=== PATIENT | female | born 1990 | race African-American/Black ===

== ENCOUNTER 2025-02-10 11:36 | Emergency (ER) | payer OTHER, SELFPAY ==
[2025-02-10 11:38] VITALS: BP 161/107
[2025-02-10 12:47] VITALS: BP 117/79
--- NOTE | 2025-02-10 12:47 | ED.GENMED ---
History of Present Illness
<Alivia Lucas PA-C - Last Filed: 02/10/25 17:39>
General
Chief Complaint: Anxiety
Source: patient
Exam Limitations: none
Time Seen by Provider: 02/10/25 12:29
History of Present Illness
History of Present Illness:
35yoF with a history of anxiety, PTSD, migraines, and asthma presenting for evaluation of anxiety. Patient's brother in November and she is still going through the grieving process. She was speaking with her PCP on the phone today
regarding the situation and her anxiety started to worsen. She feels like she is having a panic attack. She reports heart racing, chest tightness, shortness of breath, and a headache. She also cannot sit still due to her symptoms. Headache feels
similar to her prior migraines. She takes trazodone, Xanax PRN, and another medication that she does not recall the name of. The dose her medications were increased by her PCP 2 months ago. She is scheduled to see a therapist for the first time
in 2 days. No suicidal ideations.
Phy Exam
<Alivia Lucas PA-C - Last Filed: 02/10/25 17:39>
Physical Exam
Physical Exam:
Patient visibly anxious
General Physical Exam
General Presentation: no apparent distress
General Skin: warm and dry
General Habitus: normal
General Mental: alert
ENT Exam
ENT Exam: normocephalic
Cardiovascular Exam
Cardiovascular Exam: no edema and tachycardia
Pulmonary Exam
Pulmonary Exam: lungs clear, no respiratory distress, no rales, no crackles, no rhonchi and no wheezing
Neurological Exam
Neurological Exam: alert
[place] Coma Scale
Eye Opening: Spontaneous
Verbal Response: Oriented
Motor Response: Obeys Commands
GCS Total Score: 15
Skin Exam
Skin Exam: normal color and warm/dry
Psychiatric Exam
Psychiatric Exam: anxious and other (Anxious. No SI. Cooperative during assessment. No signs of psychosis. )
<Aniceto Harrell Jr., PA-C - Last Filed: 02/10/25 16:02>
[place] Coma Scale
GCS Total Score: 15
Course
<Alivia Lucas PA-C - Last Filed: 02/10/25 17:39>
Orders/Labs/Results
Orders:
Orders
02/10/25 11:43
EKG [Electrocardiogram (*1)] Urgent
Reason for Study: Tachycardia
02/10/25 11:44
EKG- Treatment ONCE
02/10/25 13:00
Crisis Consult Urgent
Reason for Consult: anxiety
0.9% Sodium Chloride 1000 ml [Nss] 1,000 ml IV BOLUS
Ketorolac [Toradol] 15 mg IV NOW STA
diazePAM [Valium Injection] 2 mg IV NOW STA
Test Result ONCE
02/10/25 13:50
Complete Blood Count/With Diff Urgent
Comprehensive Metabolic Panel Urgent
D-Dimer Urgent
HCG, Serum Qualitative Screen Urgent
TSH Reflex To Free T4 Urgent
Troponin I Urgent
02/10/25 14:06
Diphenhydramine [Benadryl] 25 mg IV NOW STA
Metoclopramide [Reglan] 10 mg IV NOW STA
02/10/25 14:07
Add On- LAB Urgent
Tests Added?: troponin
02/10/25 14:27
CT Chest PE Study Urgent
Comment:
Reason For Exam: SOB, elevated D-dimer
Abnormal Lab Results
02/10/25
13:50
WBC 2.9 L 10^3/uL
(4.8-10.8)
Absolute Lymphs (auto) 1.1 L 10^3/uL
(1.2-3.4)
Monocytes % 12.0 H %
(1.7-9.3)
D-Dimer 2.38 H ug/mlFEU
(0.00-0.50)
Sodium 134 L mmol/L
(135-145)
BUN 4 L mg/dl
(7-17)
Glucose 109 H mg/dl
(70-99)
AST 45 H U/L
(14-36)
Total Protein 8.4 H g/dl
(6.3-8.2)
02/10/25 13:50
02/10/25 13:50
Vital Signs
Initial and Last Documented VS:
Initial Vital Signs
Temp Pulse Resp BP Pulse Ox
98.9 F 115 18 161/107 98
02/10/25 11:38 02/10/25 11:38 02/10/25 11:38 02/10/25 11:38 02/10/25 11:38
Last Documented Vital Signs
Temp Pulse Resp BP Pulse Ox
98.9 F 88 16 104/76 100
02/10/25 11:38 02/10/25 16:02 02/10/25 16:02 02/10/25 16:02 02/10/25 16:02
<Aniceto Harrell Jr., DIAMOND - Last Filed: 02/10/25 16:02>
Orders/Labs/Results
Orders:
Orders
02/10/25 11:43
EKG [Electrocardiogram (*1)] Urgent
Reason for Study: Tachycardia
02/10/25 11:44
EKG- Treatment ONCE
02/10/25 13:00
Crisis Consult Urgent
Reason for Consult: anxiety
0.9% Sodium Chloride 1000 ml [Nss] 1,000 ml IV BOLUS
Ketorolac [Toradol] 15 mg IV NOW STA
diazePAM [Valium Injection] 2 mg IV NOW STA
Test Result ONCE
02/10/25 13:50
Complete Blood Count/With Diff Urgent
Comprehensive Metabolic Panel Urgent
D-Dimer Urgent
HCG, Serum Qualitative Screen Urgent
TSH Reflex To Free T4 Urgent
Troponin I Urgent
02/10/25 14:06
Diphenhydramine [Benadryl] 25 mg IV NOW STA
Metoclopramide [Reglan] 10 mg IV NOW STA
02/10/25 14:07
Add On- LAB Urgent
Tests Added?: troponin
02/10/25 14:27
CT Chest PE Study Urgent
Comment:
Reason For Exam: SOB, elevated D-dimer
Abnormal Lab Results
02/10/25
13:50
WBC 2.9 L 10^3/uL
(4.8-10.8)
Absolute Lymphs (auto) 1.1 L 10^3/uL
(1.2-3.4)
Monocytes % 12.0 H %
(1.7-9.3)
D-Dimer 2.38 H ug/mlFEU
(0.00-0.50)
Sodium 134 L mmol/L
(135-145)
BUN 4 L mg/dl
(7-17)
Glucose 109 H mg/dl
(70-99)
AST 45 H U/L
(14-36)
Total Protein 8.4 H g/dl
(6.3-8.2)
02/10/25 13:50
02/10/25 13:50
Vital Signs
Initial and Last Documented VS:
Initial Vital Signs
Temp Pulse Resp BP Pulse Ox
98.9 F 115 18 161/107 98
02/10/25 11:38 02/10/25 11:38 02/10/25 11:38 02/10/25 11:38 02/10/25 11:38
Last Documented Vital Signs
Temp Pulse Resp BP Pulse Ox
98.9 F 88 16 104/76 100
02/10/25 11:38 02/10/25 16:02 02/10/25 16:02 02/10/25 16:02 02/10/25 16:02
<Alivia Lucas PA-C - Last Filed: 02/10/25 17:39>
MDM/Problems Addressed
Differential Diagnosis Includes:
35yoF here with anxiety. Multiple complaints including chest tightness, SOB, heart racing, HURD. Believes she is having a panic attack after speaking with her PCP about her brother's . Patient hypertensive in triage with a heart rate of 115.
She is visibly anxious on exam but otherwise well-appearing. Differential diagnosis includes but is not limited to: Anxiety/panic attack, arrhythmia, thyroid dysfunction, doubt ACS, consider PE
Initial ED plan: Triage EKG shows sinus tachycardia without ischemic changes. Will check cardiac labs, D-dimer, TSH, and hCG. Crisis consulted for evaluation.
Final assessment: Patient evaluated by crisis and outpatient resources provided. Patient started to experience nausea and vomiting after receiving Valium and Reglan/Benadryl ordered. D-dimer elevated and CTA chest subsequently ordered. Remainder
of labs unremarkable including normal electrolytes, TSH, and troponin. Case signed out to Ed Julio Cesar FIELDS pending CT results.
<Alivia Lucas PA-C - Last Filed: 02/10/25 17:39>
*Pulse Oximetry
SaO2: 99
Oxygen Mode of Delivery: Room air
Patient hypoxic: no
*EKG
Interpreted by ED Provider?: Yes
EKG Intrepretation Date: 02/10/25
Heart Rate: 109
Rate: tachycardiac
Rhythm: sinus
[place]: normal axis
Interval: normal interval
QRS Pattern: normal QRS
Ischemia: no ischemia
*Critical Care Note
Total Time (30-74mins, 75-104mins- exclusive of procedures): Not Applicable
ED Attending Note
<Alivia Lucas PA-C - Last Filed: 02/10/25 17:39>
-
Portions of this chart may have been created with voice recognition software.� Occasional wrong word or��sound alike� substitutions may have occurred due to the inherent limitations of voice recognition software.
Discharge Plan
Departure
Patient Disposition: Home (Routine Discharge)
Date of Disposition: 02/10/25
Time of Disposition: 16:01
Patient with high blood pressure during this ER visit?: No
Condition: Good
Covid-19: Not Applicable
Discharge Problem:
Anxiety
Instructions: Anxiety, Adult (DC)
Referrals:
Jaja Waite, DO [Family Provider, Family Practice]
Activity Restrictions/Additional Instructions:
Here today you had a reassuring assessment. Please follow closely as an outpatient with your primary care doctor. Return for any worsening, new or concerning symptoms.
Interventions
Interventions:
*Risk Screen - Suicide Last Done: 02/10/25 11:40
*General Assessment Last Done: 02/10/25 15:11
*Neglect/Abuse Screening Last Done: 02/10/25 11:40
*ED- Fall Risk Assessment Last Done: 02/10/25 15:11
*ED COVID-19 Vaccine History Last Done: 02/10/25 15:11
*ED Influenza Vaccine History Last Done: 02/10/25 15:11
*Nursing Disposition Last Done: 02/10/25 16:21
ED-Psychological Assessment Last Done: 02/10/25 12:48
Discharge Date and Time
Discharge Date/Time: 02/10/25 16:21
Print Language: FRISIAN
[2025-02-10] MEDS: TORADOL 15 MG IV (13:55)
[2025-02-10] MEDS: VALIUM INJECTION 2 MG IV (13:55)
[2025-02-10 14:02] LABS: Hematocrit 41.3 % (37.0-47.0); Hemoglobin 14.2 g/dL (12.0-16.0); Mean Corp Hgb Conc. 34.4 g/dL (33.0-37.0); Mean Corpuscular Volume 85.7 fL (81.0-99.0); Nucleated Red Blood Cells % 0 %; Platelet Count 352 10^3/uL (130-400); Red Cell Dist. Width 13.1 % (11.5-14.5)
[2025-02-10] MEDS: NSS 1000 IV (14:04)
[2025-02-10] MEDS: BENADRYL 25 MG IV (14:14)
[2025-02-10] MEDS: REGLAN 10 MG IV (14:15)
[2025-02-10 14:16] LABS: D-Dimer 2.38 ug/mlFEU (0.00-0.50)
[2025-02-10 14:19] LABS: HCG, Serum Qualitative Screen Negative
[2025-02-10 14:26] LABS: ALT (SGPT) 25 U/L (0-35); AST (SGOT) 45 U/L (14-36); Albumin 4.9 g/dl (3.5-5.0); Alkaline Phosphatase 45 U/L (38-126); Blood Urea Nitrogen 4 mg/dl (7-17); Calcium 9.3 mg/dl (8.4-10.2); Carbon Dioxide 22 mmol/L (22-30); Chloride 101 mmol/L (98-107); Glucose 109 mg/dl (70-99); Potassium 3.7 mmol/L (3.5-5.1); Sodium 134 mmol/L (135-145); Total Protein 8.4 g/dl (6.3-8.2); eGFR > 60.00
[2025-02-10 14:50] VITALS: BP 126/84
[2025-02-10 15:00] LABS: Troponin I < 0.012 ng/ml
[2025-02-10 16:02] VITALS: BP 104/76
== END 2025-02-10 16:21 | disposition home or self-care (01) ==
LOC: EMR 11:36
PROVIDERS: Physician Assistant; EMERGENCY PHYSICIAN Emergency Medicine; FAMILY PHYSICIAN Family Medicine
DX: F41.9 Anxiety disorder, unspecified (principal); R07.89 Other chest pain; R51.9 Headache, unspecified; J45.909 Unspecified asthma, uncomplicated; Z63.4 Disappearance and death of family member
CPT/HCPCS: 96374; 96375; 96361; 99284; 71275; 80053; 84443; 84484; 84703; 85025; 85379; 93005; Q9967